=== PATIENT | female | born 1995 | race Caucasian/White ===

== ENCOUNTER → 2024-05-03 | Outpatient (CLI) | payer MEDICAID ==
--- NOTE | 2024-05-04 11:21 | MR ---
EXAMINATION TYPE: MR brain/orbits wo/w con DATE OF EXAM: 05/03/2024 4:09 PM CLINICAL INDICATION:Female, 28 years old with history of H57.11 ocular pain; PHH, Ocular pain, Optic neuritis COMPARISON: None. TECHNIQUE: Multi planar, multi sequence imaging was performed through the orbits/face. Post contrast imaging was performed after the administration of 6.5 cc of Gadavist intravenously. FINDINGS, ORBITS: The globes appear symmetrical. Orbital contents are intact. Signal intensity of th e optic nerves are within normal limits. The intraorbital fat appears preserved. Both lacrimal glan ds are unremarkable. The extraocular muscles appear symmetric. After administration of contrast, no a bnormal enhancement is seen. FINDINGS, BRAIN: The lloyd-white junctions, ventricular system, and cisterns do appear unremarkable. Diffusion-weighted imaging shows no evidence of restricted diffusion. Cavernous sinus is within nor mal limits. After administration of contrast, no abnormal enhancement is seen within the brain. The bone marrow signal is within normal limits. Paranasal sinuses and mastoid air cells: Paranasal sinus disease with mucosal thickening in the left sphenoid sinuses and mucous retention cyst within the medial aspect of the right maxillary sinus. Visualized orbits: Orbital contents are intact. IMPRESSION: 1. No evidence of intraorbital mass or significant abnormality. 2. No evidence of intracranial mass nor acute/subacute CVA accident.
== END | disposition home or self-care (01) ==
LOC: RADMRIMAIN 14:11
PROVIDERS: ATTEND Optometrist
DX: H57.11 Ocular pain, right eye (principal); H46.9 Unspecified optic neuritis
CPT/HCPCS: 70543; 70553; A9585

== ENCOUNTER → 2024-06-22 | Outpatient (CLI) | payer MEDICAID ==
--- NOTE | 2024-06-22 16:01 | US ---
EXAMINATION TYPE: US pelvis complete transvag DATE OF EXAM: 06/22/2024 COMPARISON: NONE CLINICAL INDICATION: Female, 28 years old with history of R102 PELVIC AND PERINEAL PAIN; IUD placemen t - spotting between menses and heavy menses x 1 year TECHNIQUE: Transvaginal (TV) and Transabdominal (TA) . Transabdominal sonographic images of the pel vis were acquired. Transvaginal sonographic images were medically necessary to better assess the fol lowing anatomy: Uterus, endo, and ovaries Date of LMP: 06/01/2024 EXAM MEASUREMENTS: Uterus: 6.6 x 3.2 x 5.1 cm Endometrial Stripe: ? Septated, LT = 0.2 Rt = 0.4 cm Right Ovary: 4.2 x 2.6 x 2.7 cm Left Ovary: 1.8 x 1.1 x 1.3 cm 1. Uterus: Retroverted wnl 2. Endometrium: ? septated otherwise WNL 3. Right Ovary: WNL: Multiple follicles noted 4. Left Ovary: WNL: Multiple follicles noted 5. Bilateral Adnexa: WNL 6. Posterior cul-de-sac: Trace fluid IUD seen within lower uterine segment / cervix - concern for migration (1.0 cm from fundal tip of end ometrium. Unable to connect body of IUD to wing tips - ? concern for potential break IMPRESSION: 1. IUD seen within the lower uterine segment/cervix approximately 1 cm from the fundal tip of the en dometrium. Concern for potential migration. Unable to visualize connection between the IUD and its wi ng tips. Concern for potential break. Direct visualization is recommended. 2. Possible septated uterus. This can be further evaluated with MRI pelvis as clinically indicated.
== END | disposition home or self-care (01) ==
LOC: RADUSWWP 14:57
PROVIDERS: ATTEND Obstetrics & Gynecology
DX: R10.2 Pelvic and perineal pain
CPT/HCPCS: 76830; 76856

== ENCOUNTER → 2025-05-03 | Outpatient (CLI) | payer MEDICAID ==
--- NOTE | 2025-05-03 15:07 | US ---
EXAMINATION TYPE: US pelvis complete transvag DATE OF EXAM: 05/03/2025 COMPARISON: NONE CLINICAL INDICATION: Female, 29 years old with history of N93.9 ABNORMAL UTERINE AND VAGINAL BLEEDING ; Abnormal bleeding TECHNIQUE: Transvaginal (TV) and Transabdominal (TA) . Doppler imaging: Not performed. FINDINGS: EXAM MEASUREMENTS: Uterus: 8.6 x 4.4 x 7.3 cm Endometrial Stripe: Not well visualized Right Ovary: 3.2 x 2.1 x 1.9 cm Left Ovary: 3.2 x 1.7 x 1.6 cm 1. Uterus: Retroverted. Small cervical nabothian cysts measuring up to 6 mm. 2. Endometrium: Obscured. IUD appears upper place situated along the uterine cavity. 3. Right Ovary: wnl 4. Left Ovary: wnl 5. Bilateral Adnexa: wnl 6. Posterior cul-de-sac: wnl IMPRESSION: 1. Retroverted uterus. 2. IUD appears to be appropriately situated along the uterine cavity. Imperceptible endometrial strip e. [facility], , 05/03/2025 3:05 PM
== END | disposition home or self-care (01) ==
LOC: RADUSWWP 13:58
PROVIDERS: ATTEND Student in an Organized Health Care Education/Training Program
DX: N93.9 Abnormal uterine and vaginal bleeding, unspecified (principal); N85.4 Malposition of uterus
CPT/HCPCS: 76830; 76856